=== PATIENT | female | born 1965 | race Caucasian/White ===

== ENCOUNTER → 2017-04-03 | Outpatient (CLI) | payer OTHER ==
--- NOTE | 2017-04-03 15:10 | CPEKG ---
Heart Rate: 62 RR Interval: 968 P-R Interval: 172 QRSD Interval: 88 QT Interval: 392 QTC Interval: 398 P [place]: 42 QRS [place]: 19 T Wave [place]: 26 EKG Severity - NORMAL ECG - EKG Impression: SINUS RHYTHM Electronically Signed By: Jorden Russo 03-Apr-2017 15:59:10
== END ==
LOC: FCP 14:45
PROVIDERS: ATTEND Otolaryngology
DX: Z01.810 Encounter for preprocedural cardiovascular examination (principal)